=== PATIENT | male | born 1945 | race Caucasian/White ===

== ENCOUNTER → 2024-02-21 11:55 | Outpatient (REF) | payer MEDICARE, SELFPAY | LOC: HWRAD 11:55 | PROVIDERS: ATTENDING PHYSICIAN Internal Medicine | DX: M54.41 Lumbago with sciatica, right side (principal); M54.42 Lumbago with sciatica, left side | CPT/HCPCS: 72110 ==

== ENCOUNTER → 2024-04-17 06:39 | Outpatient (REF) | payer MEDICARE, SELFPAY | LOC: MRI 06:39 | PROVIDERS: ATTENDING PHYSICIAN Internal Medicine | DX: M54.9 Dorsalgia, unspecified (principal); C61 Malignant neoplasm of prostate; M51.36 Other intervertebral disc degeneration, lumbar region | CPT/HCPCS: 72148 ==

== ENCOUNTER 2024-10-02 08:42 | Outpatient (RCR) | payer MEDICARE, SELFPAY | END 2024-10-02 23:59 | disposition home or self-care (01) | LOC: RPT 08:42 | PROVIDERS: ATTENDING PHYSICIAN Nurse Practitioner Adult Health; FAMILY PHYSICIAN Internal Medicine | DX: C61 Malignant neoplasm of prostate (principal); R53.0 Neoplastic (malignant) related fatigue; Z73.6 Limitation of activities due to disability; R26.89 Other abnormalities of gait and mobility; Z79.818 Long term (current) use of other agents affecting estrogen receptors and estrogen levels; Z92.3 Personal history of irradiation | CPT/HCPCS: 97110; 97163 ==

== ENCOUNTER 2024-11-01 13:11 | Outpatient (RCR) | payer MEDICARE, SELFPAY | END 2024-11-01 23:59 | disposition home or self-care (01) | LOC: RPT 13:11 | PROVIDERS: ATTENDING PHYSICIAN Nurse Practitioner Adult Health; FAMILY PHYSICIAN Internal Medicine | DX: C61 Malignant neoplasm of prostate; R53.0 Neoplastic (malignant) related fatigue; Z73.6 Limitation of activities due to disability; M62.81 Muscle weakness (generalized); Z79.818 Long term (current) use of other agents affecting estrogen receptors and estrogen levels; R26.89 Other abnormalities of gait and mobility; E13.42 Other specified diabetes mellitus with diabetic polyneuropathy; Z92.3 Personal history of irradiation | CPT/HCPCS: 97110; 97112; 97116; 97140; 97164; 97530 ==

== ENCOUNTER 2024-11-28 13:00 | Outpatient (RCR) | payer MEDICARE, SELFPAY | END 2024-11-28 23:59 | disposition home or self-care (01) | LOC: RPT 13:00 | PROVIDERS: ATTENDING PHYSICIAN Nurse Practitioner Adult Health; FAMILY PHYSICIAN Internal Medicine | DX: C61 Malignant neoplasm of prostate; R53.0 Neoplastic (malignant) related fatigue; Z73.6 Limitation of activities due to disability; M62.81 Muscle weakness (generalized); R26.89 Other abnormalities of gait and mobility; E13.42 Other specified diabetes mellitus with diabetic polyneuropathy; Z79.818 Long term (current) use of other agents affecting estrogen receptors and estrogen levels; Z92.3 Personal history of irradiation | CPT/HCPCS: 97110; 97112; 97116; 97530 ==

== ENCOUNTER 2024-12-30 15:08 | Outpatient (RCR) | payer MEDICARE, SELFPAY | END 2024-12-30 23:59 | disposition home or self-care (01) | LOC: RPT 15:08 | PROVIDERS: ATTENDING PHYSICIAN Nurse Practitioner Adult Health; FAMILY PHYSICIAN Internal Medicine | DX: C61 Malignant neoplasm of prostate (principal); R53.0 Neoplastic (malignant) related fatigue; E13.42 Other specified diabetes mellitus with diabetic polyneuropathy; M62.81 Muscle weakness (generalized); Z73.6 Limitation of activities due to disability; Z79.818 Long term (current) use of other agents affecting estrogen receptors and estrogen levels; R26.89 Other abnormalities of gait and mobility; Z92.3 Personal history of irradiation | CPT/HCPCS: 97110; 97112; 97530 ==